=== PATIENT | female | born 2000 | race Caucasian/White ===

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

== ENCOUNTER 2023-07-24 23:48 | Emergency (ER) | payer OTHER ==
[~2023-07-24] VITALS: Ht 154.9 cm; Wt 75.7 kg
[2023-07-25 00:05] VITALS: BP 106/68; PULSE 100; RESP 18; TEMP 98; O2SAT 100
[2023-07-25] MEDS ORDERED: AMOX-1230 PO (02:52)
[2023-07-25] MEDS ORDERED: CIPR7.5D2 OT (02:52)
[2023-07-25] MEDS ORDERED: IBUP-2213 PO (02:52)
== END 2023-07-25 02:30 | disposition home or self-care (01) ==
LOC: MED 23:48
DX: H66.92 Otitis media, unspecified, left ear (principal); H60.92 Unspecified otitis externa, left ear; J02.9 Acute pharyngitis, unspecified; R05.9 Cough, unspecified; Z79.899 Other long term (current) drug therapy
CPT/HCPCS: 99282